=== PATIENT | male | born 1980 | race African-American/Black ===

== ENCOUNTER 2017-01-26 01:45 | Emergency (ER) | payer OTHER ==
[~2017-01-26] VITALS: Ht 172.7 cm; Wt 104.0 kg
[2017-01-26 02:31] VITALS: BP 139/83
[2017-01-26] MEDS ORDERED: TETANUS, DIPHTHERIA, PERTUSSIS VAC/PF 0.5ML (>7YR OLD) IM ONE (03:45)
[2017-01-26] MEDS ORDERED: LIDOCAINE HCL 1% 20ML VIAL (Pyxis) INJ MC ONE (03:45)
[2017-01-26] MEDS ORDERED: BACITRACIN ZINC OINT UDPKT TOP ONE (03:45)
== END 2017-01-26 12:07 | disposition home or self-care (01) ==
LOC: ER 01:45
DX: S61.217A Laceration without foreign body of left little finger without damage to nail, initial encounter (principal); X58.XXXA Exposure to other specified factors, initial encounter; Y93.89 Activity, other specified; Y92.89 Other specified places as the place of occurrence of the external cause; F17.210 Nicotine dependence, cigarettes, uncomplicated
CPT/HCPCS: 12001; 90471; 90715; 99283; J3490; Z7610

== ENCOUNTER 2017-06-20 13:34 | Emergency (ER) | payer OTHER ==
[~2017-06-20] VITALS: Ht 172.7 cm; Wt 99.0 kg
[2017-06-20] MEDS ORDERED: KETOROLAC 30MG/ML VIAL IV STA (16:23)
[2017-06-20] MEDS ORDERED: ACETAMINOPHEN WITH CODEINE 300/30MG TABLET PO STA (16:23)
[2017-06-20] MEDS ORDERED: SODIUM CHLORIDE 0.9% 1,000 ML IV ONE (16:23)
[2017-06-20 18:24] VITALS: BP 122/62
== END 2017-06-20 18:26 | disposition home or self-care (01) ==
LOC: ER 14:17
DX: L03.116 Cellulitis of left lower limb (principal); F17.200 Nicotine dependence, unspecified, uncomplicated
CPT/HCPCS: 96361; 96374; 99284; J1885; J7030; Z7610